=== PATIENT | female | born 1980 | race Caucasian/White ===

== ENCOUNTER 2022-07-22 05:50 | Emergency (ER) | payer SELFPAY ==
[~2022-07-22] VITALS: Ht 152.4 cm; Wt 70.3 kg
--- NOTE | 2022-07-22 05:50 | NUR ---
PT CLARK GUTIERREZ, TAKEN TO CHAIR
[2022-07-22 05:54] VITALS: BP 11/75
--- NOTE | 2022-07-22 06:01 | NUR ---
PATIENT BIB [facility] POLICE DEPT. PATIENT EXAMINED BY DR. PORTILLO. PATIENT MEDICALLY CLEARED AND RELEASED IN CUSTODY IN STABLE CONDITION. ORIGINAL PRE-BOOK FORM GIVEN TO OFFICER MAYRA, #[id number].
== END 2022-07-22 06:01 ==
LOC: MED 05:50
CPT/HCPCS: 99283